=== PATIENT | male | born 1980 | race Caucasian/White ===

== ENCOUNTER 2021-01-10 08:50 | Observation (INO) ==
[2021-01-10] MEDS ORDERED: LR 1000 ML IV 1,000 ML IV ONE (09:45)
[2021-01-10] MEDS ORDERED: NS 100 ML IV 100 ML IV ONE (09:45)
[2021-01-10] MEDS ORDERED: ANCEF VIAL 1 GRAM ONE (09:45)
[2021-01-10] MEDS ORDERED: NAROPIN 0.75% EPI ONE (10:42)
[2021-01-10 10:43] VITALS: BMI 25.1
[2021-01-10] MEDS ORDERED: TORADOL 30 MG VIAL ONE ×2 (13:17→14:30)
[2021-01-10] MEDS ORDERED: DECADRON INJ ONE (13:17)
[2021-01-10] MEDS ORDERED: FENTANYL INJ 100 mcg ONE (13:18)
[2021-01-10] MEDS ORDERED: NS 1000 ML 1,000 ML ONE (13:18)
[2021-01-10] MEDS ORDERED: ZEMURON 50 MG VIAL ONE (13:25)
[2021-01-10] MEDS ORDERED: BRIDION ONE (13:25)
[2021-01-10] MEDS ORDERED: MARCAINE 0.25% INJ ONE (13:41)
[2021-01-10] MEDS ORDERED: OFIRMEV IV 1000 MG VIAL 1,000 MG/100 ML VIAL IV ONE (13:43)
[2021-01-10] MEDS ORDERED: DIPRIVAN VIAL ONE (14:30)
[2021-01-10] MEDS ORDERED: VERSED ONE (14:30)
[2021-01-10] MEDS ORDERED: ZOFRAN INJ 4 MG VIAL ONE (14:30)
[2021-01-10] MEDS ORDERED: LTA KIT LIDOCAINE 4% ONE (14:30)
[2021-01-10] MEDS ORDERED: SUPRANE ONE ×2 (14:30→14:35)
[2021-01-10] MEDS ORDERED: XYLOCAINE 2 % (PLAIN) ONE (14:30)
[2021-01-10] MEDS ORDERED: HYDROGEN PEROXIDE 3% ONE (15:51)
[2021-01-10] MEDS ORDERED: PHENERGAN INJ 25 MG IM ONE ×2 (16:13→18:19)
[2021-01-10] MEDS ORDERED: ZOFRAN INJ 4 MG VIAL IVP PRN ×2 (16:29→16:34)
[2021-01-10] MEDS ORDERED: DILAUDID INJ IVP PRN ×2 (16:29→16:39)
[2021-01-10] MEDS ORDERED: BENADRYL INJ 50 MG VIAL IVP PRN (16:29)
[2021-01-10] MEDS ORDERED: REGLAN INJ 10 MG VIAL IVP PRN (16:29)
[2021-01-10] MEDS ORDERED: PHENERGAN INJ 25 MG IM PRN (16:29)
[2021-01-10] MEDS ORDERED: M.S. CONTIN 15 MG (EXTENDED RELEASE) PO PRN (16:57)
[2021-01-10] MEDS: TORADOL 30 MG VIAL IVP PRN (17:29)
[2021-01-10] MEDS: PERCOCET TAB 5/325 MG PO PRN ×2 (17:45→21:44)
[2021-01-10] MEDS ORDERED: DILAUDID INJ ONE (18:19)
[2021-01-10] MEDS: DILAUDID INJ IM PRN ×2 (18:28→22:34)
[2021-01-10] MEDS: PHENERGAN INJ 25 MG IM PRN (18:29)
[2021-01-10] MEDS: WELLBUTRIN SR 150 MG (BID) PO SCH (20:48)
[2021-01-10] MEDS ORDERED: NEURONTIN TAB 600 MG ONE (20:48)
[2021-01-10] MEDS: COLACE CAP 100 MG PO SCH (20:49)
[2021-01-10] MEDS: NS 1000 ML 1,000 ML IV SCH (20:51)
[2021-01-10] MEDS: NEURONTIN TAB 600 MG PO SCH (21:01)
[2021-01-10] MEDS: TYLENOL 325 MG TAB PO PRN (21:45)
[2021-01-11] MEDS: TYLENOL 325 MG TAB PO PRN ×2 (01:41→05:33)
[2021-01-11] MEDS: PERCOCET TAB 5/325 MG PO PRN ×6 (01:41→21:45)
[2021-01-11] MEDS: TORADOL 30 MG VIAL IVP PRN ×3 (01:50→18:06)
[2021-01-11] MEDS: DILAUDID INJ IM PRN ×2 (02:44→06:41)
[2021-01-11] MEDS: NEURONTIN TAB 600 MG PO SCH ×3 (05:34→21:44)
[2021-01-11] MEDS: NS 1000 ML 1,000 ML IV SCH ×3 (07:57→20:41)
[2021-01-11] MEDS ORDERED: NEURONTIN TAB 600 MG PO SCH (08:00)
[2021-01-11] MEDS: WELLBUTRIN SR 150 MG (BID) PO SCH ×3 (09:11→20:39)
[2021-01-11] MEDS: LOVENOX INJ 40 MG SYR SC SCH (09:13)
[2021-01-11] MEDS: NICOTINE PATCH TD SCH (09:22)
[2021-01-11] MEDS ORDERED: MAALOX or MYLANTA PO PRN (12:05)
[2021-01-11] MEDS: PHENERGAN INJ 25 MG IM PRN (12:52)
[2021-01-11] MEDS: COLACE CAP 100 MG PO SCH (20:38)
[2021-01-12] MEDS: PERCOCET TAB 5/325 MG PO PRN ×2 (03:31→09:01)
[2021-01-12] MEDS: TORADOL 30 MG VIAL IVP PRN (03:32)
[2021-01-12] MEDS: NEURONTIN TAB 600 MG PO SCH (06:10)
[2021-01-12] MEDS: LOVENOX INJ 40 MG SYR SC SCH (08:59)
[2021-01-12] MEDS: NICOTINE PATCH TD SCH (09:00)
[2021-01-12] MEDS: WELLBUTRIN SR 150 MG (BID) PO SCH (09:01)
[2021-01-12 09:30] VITALS: BP 124/83
== END 2021-01-12 11:25 | disposition home or self-care (01) ==
LOC: SURG1 08:50 → MED/SURG 08:50 → SURG1 01-12 11:25 → MED/SURG 01-13 10:18
PROVIDERS: ADMIT Obstetrics & Gynecology Obstetrics; ATTEND Obstetrics & Gynecology Obstetrics
DX: M21.6X1 Other acquired deformities of right foot; M62.81 Muscle weakness (generalized); G89.18 Other acute postprocedural pain; M21.861 Other specified acquired deformities of right lower leg